=== PATIENT | male | born 1935 | race Caucasian/White ===

== ENCOUNTER → 2017-08-14 | Outpatient (CLI) | payer BC ==
--- NOTE | 2017-08-14 10:25 | DIAGNOSTIC IMAGING REPORT ---
L HAND MIN 3 VIEWS ROUTINE CLINICAL HISTORY: M79.89 LEFT HAND PAIN COMPARISON: None. DISCUSSION: The bony mineralization is relatively normal for age. There are no acute fractures or subluxations. There are osteoarthritic changes most pronounced the level of the proximal distal interphalangeal joints. There is soft tissue swelling. There are no definite bony erosions. IMPRESSION: Moderate arthritic change. No acute fractures. Electronically signed by: Aidan Sena M.D. 08/14/2017 10:23 AM Dictated Date/Time: 08/14/2017 10:22 AM
--- NOTE | 2017-08-14 10:25 | DIAGNOSTIC IMAGING REPORT ---
R HAND MIN 3 VIEWS ROUTINE CLINICAL HISTORY: Bilateral hand pain and swelling. COMPARISON: None FINDINGS: Alignment of the right hand is anatomic. No fracture or suspicious lesion is present. There is moderate joint space narrowing within the right second digit PIP joint with osteophytosis. There is associated soft tissue swelling. Mild osteoarthritis within multiple additional articulations of the right hand. No definite erosions are identified. IMPRESSION: 1. 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 2.No fracture. Electronically signed by: Luis A Gibbons M.D. 08/14/2017 10:23 AM Dictated Date/Time: 08/14/2017 10:21 AM
== END | disposition home or self-care (01) ==
LOC: C.RAD1850 10:06
PROVIDERS: ATTEND Student in an Organized Health Care Education/Training Program
DX: M79.89 Other specified soft tissue disorders (principal); M19.041 Primary osteoarthritis, right hand; M19.90 Unspecified osteoarthritis, unspecified site